=== PATIENT | female | born 1990 | race Caucasian/White ===

== ENCOUNTER → 2017-10-30 | Outpatient (CLI) | payer BC ==
[~2017-10-30] MED LIST: LORTAB 5/500 501 TAB PO; NO HOME MEDICATIONS
== END ==
LOC: COL.PUL 10-26 10:00
DX: R06.02 Shortness of breath (principal)
CPT/HCPCS: J7674

== ENCOUNTER → 2020-05-13 | Outpatient (CLI) | payer OTHER ==
[~2020-05-13] MED LIST changes: +ALLEGRA 180MG180 MG PO; +MOTRIN 800800 MG/TAB PO; +PERCOCET 325 MG1 TA2 PO; +PRENATAL
== END ==
LOC: ZCOL.LAB
DX: Z20.828 Contact with and (suspected) exposure to other viral communicable diseases (principal)

== ENCOUNTER 2020-05-18 07:10 | Inpatient (IN) | payer OTHER ==
[2020-05-18] VITALS (55 sets, daily range): BP systolic 100–156; BP diastolic 38–100; PULSE 67–123; TEMP 98.1–98.9
[~2020-05-18] VITALS: Ht 162.6 cm; Wt 106.8 kg
[~2020-05-18 07:10] MED LIST changes: -ALLEGRA 180MG180 MG PO; -MOTRIN 800800 MG/TAB PO; -PERCOCET 325 MG1 TA2 PO; -PRENATAL
--- NOTE | 2020-05-18 07:10 | NUR ---
Patient arrives ambulatory with spouse for scheduled induction of labor. Patient denies contractions, ROM, or vaginal bleeding. Reports normal movement. Patient changes into gown, EFM explained and placed. VS obtained. Reviewed plan of care for induction/labor & delivery. Patient denies questions and agrees to plan of care. 0735- IV started in LFA. Labs obtained and sent. LR infusing per protocol. Consents explained and signed. Assessment completed. Patient denies questions. Reviewed Pitocin administration. Patient agrees and denies questions. 0808- Pitocin started at 2 mU per protocol and order. 0812- Dr. Dunn at bedside. Discussing plan of care for AROM, patient agrees. 0814- SVE per provider /. AROM by Dr. Dunn for small amount of clear fluid. Pericare given and patient repositioned WL. Updated on plan of care. cAll light in reach.
[2020-05-18] MEDS ORDERED: PRENATAL (08:07)
[2020-05-18] MEDS ORDERED: ALLEGRA 180MG180 MG PO (08:07)
[2020-05-18 08:09] LABS: BASO # 0.1 (0.0-0.2); BASO % 0.5 % (0.0-2.0); EOS # 0.1 (0.0-0.7); EOS % 1.4 % (0-4.0); GRAN # 7.7 (1.4-6.5); GRAN % 75.5 % (42.2-75.2); LYMPH # 1.7 (1.2-3.4); LYMPH % 16.9 % (20.0-51.0); MEAN CELL VOLUME 84 fl (80.0-100.0); MEAN CORPUSCULAR HEMOGLOBIN 28 pg (27.0-31.0); MEAN CORPUSCULAR HGB CONC 33 g/dl (33.0-37.0); MEAN PLATELET VOLUME 12.1 fl (7.4-10.4); MONO # 0.6 (0.1-0.6); MONO % 5.4 % (1.7-9.3); PLATELET COUNT 247 K/mm3 (130-400); RED BLOOD COUNT 4.27 M/mm3 (4.10-5.30); REDCELL DISTRIBUTION WIDTH-CV 14.6 % (11.5-14.5)
--- NOTE | 2020-05-18 10:15 | NUR ---
Patient standing at bedside rocking with contractions. RN at bedside palpating abdomen as difficutly tracing contractions via toco is noted due to maternal position and movement.
--- NOTE | 2020-05-18 10:46 | NUR ---
Patient requesting SVE. SVE 3-/-2. Patient requesting epidural when anesthesia is available.
--- NOTE | 2020-05-18 10:55 | NUR ---
Patient sitting on edge of bed for epidural. Cindy Martinez CRNA at bedside. 1110- Epidural test dose by Cindy Martinez CRNA. Patient tolerates well, see adverse reactions.
--- NOTE | 2020-05-18 12:40 | NUR ---
Dr. Dunn at bedside. Discussing IUPC placement, patient agrees. SVE per provider and IUPC placed. Orders to continue increasing Pitocin. Physician remains on unit.
--- NOTE | 2020-05-18 13:05 | NUR ---
[id number]: MVUs 175. Physician on unit and notified. Orders to continue Pitocin induction.
--- NOTE | 2020-05-18 14:20 | NUR ---
Dr. Dunn at bedside. SVE /-1. Patient repositioned bert position. Physician reviews FHR strip and contraction pattern. No new orders recieved.
--- NOTE | 2020-05-18 17:55 | NUR ---
Orders per Dr. Dunn to discontinue Pitocin infusion. Physician in transition. 1757- Dr. Dunn at bedside. Discsusing plan of care with patient. Decision for section after SVE unchanged per provider. Patient prepped for surgery- shave and preop prep completed. 1809- Report to Eddie Maurer RN.
[2020-05-18] MEDS ORDERED: PERCOCET 325 MG1 TA2 PO (18:19)
[2020-05-18] MEDS ORDERED: MOTRIN 800800 MG/TAB PO (18:19)
[2020-05-19 00:28] VITALS: BP 140/73; PULSE 94; TEMP 99.1
[2020-05-19 04:12] VITALS: BP 122/74; PULSE 85; TEMP 98.1
[2020-05-19 09:08] VITALS: BP 121/70; PULSE 81; TEMP 97.9
--- NOTE | 2020-05-19 09:29 | NUR ---
Initial visit attempt; Family out, Real Estate Sales Supervisor left card of congratulations for the of their son and information regarding the availability of spiritual care at [facility].
--- NOTE | 2020-05-19 12:05 | NUR ---
parents into nursery to visit and hold infant. Updated on POC.
[2020-05-19 12:07] VITALS: BP 91/61; PULSE 90; TEMP 98.2
[2020-05-19 16:31] VITALS: BP 114/59; PULSE 83; TEMP 97.7
[2020-05-19 20:30] VITALS: BP 134/75; PULSE 86; TEMP 98.1
[2020-05-20 08:35] VITALS: BP 130/77; PULSE 77; TEMP 98
[2020-05-20 17:50] VITALS: BP 120/76; PULSE 84; TEMP 97.6
[2020-05-20 21:45] VITALS: BP 123/64; PULSE 83; TEMP 99.1
[2020-05-21 06:50] VITALS: BP 132/80; PULSE 80; TEMP 97.4
--- NOTE | 2020-05-21 09:23 | NUR ---
MOTHER IN NURSERY AT THIS TIME VISITING . MOTHER TOLERATING PO PAIN MEDS. PLANS TO SHOWER TODAY AND GO TO [facility]ARDER STATUS.
== END 2020-05-21 16:00 | disposition home or self-care (01) | DRG 788 ==
LOC: LDR 07:10 → OB 07:10
PROVIDERS: ADMIT Obstetrics & Gynecology
PROC: 10D00Z1 Extraction of Products of Conception, Low, Open Approach (ICD-10-PCS; principal; 2020-05-19)
DX: O48.0 Post-term pregnancy (principal); Z3A.40 40 weeks gestation of pregnancy; O99.214 Obesity complicating childbirth; E66.9 Obesity, unspecified; O99.52 Diseases of the respiratory system complicating childbirth; J45.909 Unspecified asthma, uncomplicated; O99.344 Other mental disorders complicating childbirth; F32.9 Major depressive disorder, single episode, unspecified; O99.284 Endocrine, nutritional and metabolic diseases complicating childbirth; E28.2 Polycystic ovarian syndrome; O62.0 Primary inadequate contractions; O36.63X0 Maternal care for excessive fetal growth, third trimester, not applicable or unspecified; Z37.0 Single live birth
CPT/HCPCS: J0690; J1100; J2370; J2405; J2590; J7120